=== PATIENT | female | born 1955 | race Caucasian/White ===

== ENCOUNTER → 2017-09-17 08:01 | Outpatient (CLI) | payer BC ==
[~2017-09-17] VITALS: Ht 170.2 cm; Wt 75.0 kg
--- NOTE | ~2017-09-17 | HEMODYNAMI ---
PATIENT:ANNIE NOEL MEDICAL RECORD: [id number] : 57 [id number] ADMISSION DATE: 09/17/17 Generatedon:09/17/201710:01 Patient name: ANNIE NOEL Patient #: [id number] SSN: [id number] : 1955 Date of study: 09/17/2017 Page: Of Hemodynamic Procedure Report Patient Data Patient Demographics Procedure consent was obtained First Name: ANNIE Gender: Female Last Name: : 1955 Patient #: [id number] Age: 62 year(s) Race: SSN: [id number] Additional ID: [id number] Contact details Address: [address] [place] [address] [address] State: [place] City: [facility] Zip code: [address] Past Medical History Allergies: No known allergies Admission Admission Data Admission Date: 09/17/2017 Admission Time: 8:01 Procedure Procedure Types Cath Procedure Diagnostic Procedure LHC LHC w/Coronaries FFR/IVUS Intra-Coronary IVUS Initial PCI Procedure Coronary Stent Coronary Stent Initial Procedure Description Procedure Date Procedure Date: 09/17/2017 Procedure Start Time: 9:38 Procedure End Time: 9:53 Procedure Staff Name Function Bryant Florez MD Performing Physician Kylie Angeles RT Monitor Jessica Brooks RT Scrub Shani Hurley RN Nurse Procedure Data Cath Procedure Fluoroscopy Diagnostic fluoroscopy Total fluoroscopy Time: 3.2 time: 3.2 min min Diagnostic fluoroscopy Total fluoroscopy dose: 851 dose: 851 mGy mGy Contrast Material Contrast Material Type Amount (ml) Isovue 300 65 Entry Location Entry Primary Successful Side Size Upsize Upsize Entry Closure Succes sful Closure Location (Fr) 1 (Fr) 2 (Fr) Remarks Device Remarks Femoral Right 5 Fr 6 Fr Exoseal artery Short Estimated blood loss: 5 ml Diagnostic catheters Device Type Used For End Catheter Placement MULTIPACK Pigtail 5 Fr LV Angiography catheter MULTIPACK JL 4.0 5Fr Left Coronary catheter Angiography MULTIPACK 3DRC 5Fr Right Coronary catheter Angiography Procedure Complications No complications Procedure Medications Medication Administration Route Dosage Oxygen NC 2 l/min Lidocaine 2% added to field 20 Heparin Flush Bag added to field 2 bags (1000units/500ml NS) 0.9% NaCl I.V. 100 ml/hr Versed I.V. 2 mg Fentanyl I.V. 100 mcg Versed I.V. 2 mg Fentanyl I.V. 100 mcg Heparin Bolus I.V. 4000 units Versed I.V. 2 mg Fentanyl I.V. 100 mcg Integrilin (Bolus I.V. 6.8 ml 2mg/ml) Versed I.V. 0.5 mg Fentanyl I.V. 25 mcg Plavix P.O. 600 mg Hemodynamics Rest Heart Rate: 66 (bpm) Pressure Samples Time Site Value (mmHg) Purpose Heart Use Rate(bpm) 9:39 LV 62/39,51 Snapshot 58 Snapshots Pre Cath Intra NCS Post Cath Vital Signs Time Heart Resp SPO2 etCO2 NIBP (mmHg) Rhythm Pain Sedation Rate (ipm) (%) (mmHg) Status Level (bpm) 9:22:31 66 22 100 20.1 127/85(104) NSR 0 (11) 10(A) , No pain 9:26:20 64 27 97 27.5 122/71(97) NSR 0 (11) 10(A) , No pain 9:30:07 63 32 99 27.6 116/74(95) NSR 0 (11) 10(A) , No pain 9:33:57 63 30 96 27.5 99/65(79) NSR 0 (11) 10(A) , No pain 9:37:42 64 18 98 17.8 102/67(82) NSR 0 (11) 10(A) , No pain 9:41:31 61 19 99 17.8 94/59(75) NSR 0 (11) 9(A) , No pain 9:45:37 67 19 97 14.8 127/74(90) NSR 0 (11) 9(A) , No pain 9:49:26 67 18 99 17.8 102/62(85) NSR 0 (11) 9(A) , No pain 9:53:12 65 18 99 16.3 106/69(89) NSR 0 (11) 9(A) , No pain 9:59:12 65 22 100 35 121/76(98) NSR 0 (11) 10(A) , No pain Medications Time Medication Route Dose Verified Delivered Reason Notes Effectiveness by by 9:28:07 Oxygen NC 2 Bryant Buffie used for l/min Gautam Hurley RN procedure 9:28:14 Lidocaine 2% added 20ml Bryant Bryant for local to vial Gautam Florez MD anesthetic field 9:28:19 Heparin Flush added 2 Bryant Bryant used for Bag to bags Gautam Florez MD procedure (1000units/500ml field NS) 9:28:26 0.9% NaCl I.V. 100 Bryant Buffie Per physician ml/hr Gautam Hurley RN 9:28:35 Versed I.V. 2 mg Bryant Buffie used for Gautam Hurley RN procedure 9:28:40 Fentanyl I.V. 100 Bryant Buffie for sedation mcg Gautam Hurley RN 9:34:59 Versed I.V. 2 mg Bryant Buffie used for Gautam Hurley RN procedure 9:35:04 Fentanyl I.V. 100 Bryant Buffie for sedation mcg Gautam Hurley RN 9:40:04 Versed I.V. 2 mg Bryant Buffie used for Gautam Hurley RN procedure 9:40:09 Fentanyl I.V. 100 Bryant Buffie for sedation mcg Gautam Hurley RN 9:44:00 Heparin Bolus I.V. 4000 Bryant Buffie for verifie d units Gautam Hurley RN anticoagulation with dr florez 9:47:42 Integrilin I.V. 6.8 Bryant Buffie for wasted (Bolus 2mg/ml) ml Gautam Hurley RN antiplatelet 3.2 ml therapy of vial 9:49:01 Versed I.V. 0.5 Bryant Buffie used for mg Gautam Hurley RN procedure 9:49:05 Fentanyl I.V. 25 Bryant Buffie for sedation mcg Gautam Hurley RN 9:56:51 Plavix P.O. 600 Bryant Buffie for mg Gautam Hurley RN antiplatelet therapy Procedure Log Time Note 9:07:27 Informed consent obtained and on chart 9:07:35 Diagnostic Cath Status : Elective 9:08:00 Jessica Brooks RT(R) sent for patient. Start room use. 9:08:01 Time tracking: Regular hours (M-F 7:00 - 5:00) 9:08:06 Plan of Care:Hemodynamics will remain stable., Cardiac rhythm will remain stable., Comfort level will be maintained., Respiratory function will remain adequate., Patient/ family verbilizes understanding of procedure., Procedure tolerated without complication., Recovers from procedure without complications.. 9:13:34 Patient received from Pre/Post Procedure Room to CCL 2 Alert and oriented. Tansferred to table in Supine position. 9:13:35 Warm blankets applied, and eufemia hugger turned on for patient comfort. 9:13:36 Correct patient and procedure confirmed by team. 9:13:37 ECG and BP/O2 sat monitors applied to patient. 9:21:49 Vital chart was started 9:21:55 Baseline sample Acquired. 9:22:02 Rhythm: sinus rhythm 9:22:04 Full Disclosure recording started 9:22:15 H&P Date Dictated: 09/02/2017 Within 30 days and on chart., H&P Addendum completed by physician on day of procedure. (MUST COMPLETE FOR ALL OUTPATIENTS). 9:22:23 Pre-procedure instructions explained to patient. 9:22:26 Family in waiting room. 9:22:28 Patient NPO since Midnight. 9:22:39 Patient allergic to No known allergies 9:22:43 Is the patient allergic to Iodine/contrast media? No. 9:22:45 Was the patient premedicated? Yes 9:22:47 Is patient on blood thinner?No 9:22:49 Patient diabetic? No. 9:22:53 Snore? Unknown 9:22:55 Sleep apnea? No 9:22:58 Deviated septum? No 9:22:59 Opens mouth fully? Yes 9:23:00 Sticks out tongue? Yes 9:23:08 Airway obstruction? Yes COPD 9:23:20 Dentures? Yes tight 9:23:25 Patient pain scale 0/10 ?. 9:23:31 IV patent on arrival in left forearm with 0.9% NaCl at [facility]. 9:23:36 Lab results completed and on chart. 9:23:40 Right groin area was prepped with chlora-prep and draped in sterile fashion 9:23:41 Alarms reviewed by R. N. 9::42 Sharps counted by scrub and verified by R.N. 9:23:43 Physician paged 9:: Physician arrived 9:: --------ALL STOP TIME OUT------ : Final Timeout: patient, procedure, and site verified with staff and physician. All members of the team are in agreement. 9:24: Right groin site verified by team. 9::29 Physical assessment completed. ASA score P 2 - A patient with mild systemic disease as per Bryant Florez MD. 9:24:34 Sedation plan: IV Moderate Sedation Medication:Versed, Fentanyl 9:24:37 Use device set Femoral Dx 9:24:38 ACIST Syringe (88651) opened to sterile field. 9:24:38 Bag Decanter (2002S) opened to sterile field. 9:24:39 Medline Cath Pack ([id number]) opened to sterile field. 9:24:39 DIAGNOSTIC WIRE .035 260cm J wire (404834) opened to sterile field. 9:24:40 ACIST Hand Control (17181) opened to sterile field. 9:24:41 ACIST Manifold (68901) opened to sterile field. 9:24:41 DIAGNOSTIC Multipack 5Fr catheter set (CU0228) opened to sterile field. 9:24:42 Tegaderm 4 x 4 (1626W) opened to sterile field. 9:24:43 SHEATH Prelude 5Fr 0.035 ([id number]-3O-49-035) opened to sterile field. 9:28:07 Oxygen 2 l/min NC was administered by Shani Hurley RN; used for procedure; 9:28:14 Lidocaine 2% 20ml vial added to field was administered by Bryant Florez MD; for local anesthetic; 9:28:19 Heparin Flush Bag (1000units/500ml NS) 2 bags added to field was administered by Bryant Florez MD; used for procedure; 9:28:26 0.9% NaCl 100 ml/hr I.V. was administered by Shani Hurley RN; Per physician; 9:28:35 Versed 2 mg I.V. was administered by Shani Hurley RN; used for procedure; 9:28:40 Fentanyl 100 mcg I.V. was administered by Shani Hurley RN; for sedation; 9:31:36 Zero performed for pressure channel P1 9:34:59 Versed 2 mg I.V. was administered by Shani Hurley RN; used for procedure; 9:35:04 Fentanyl 100 mcg I.V. was administered by Shani Hurley RN; for sedation; 9:38:23 Procedure started. 9:38:27 Local anesthetic to right femoral artery with Lidocaine 2% by Bryant Florez MD.INITIAL ACCESS ONLY 9:38:35 A 5 Fr sheath was inserted into the Right Femoral artery 9:39:04 A MULTIPACK Pigtail 5 Fr catheter was advanced over the wire and used for LV Angiography. 9:39:31 LV hemodynamics recorded. 9:39:31 LV gram done using GREGORIO 9:39:34 Injector settings: Ml/sec: 5, Volume: 15, 9:39:40 EF : 60 % 9:39:45 Catheter removed. 9:39:49 A MULTIPACK JL 4.0 5Fr catheter was advanced over the wire and used for Left Coronary Angiography. 9:40:04 Versed 2 mg I.V. was administered by Shani Hurley RN; used for procedure; 9:40:09 Fentanyl 100 mcg I.V. was administered by Shani Hurley RN; for sedation; 9:40:29 LCA angiography performed. 9:40:31 Injector settings: Ml/sec: 3, Volume: 6, 9:41:42 Catheter removed. 9:41:46 A MULTIPACK 3DRC 5Fr catheter was advanced over the wire and used for Right Coronary Angiography. 9:42:04 RCA angiography performed. 9:42:07 Injector settings: Ml/sec: 3, Volume: 6, 9:43:00 SHEATH 6Fr Prelude ([id number]) opened to sterile field. 9:43:01 INFLATOR Merit BasixCompak (SO8766) opened to sterile field. 9:43:02 [place] Stebbins Eagleye IVUS Catheter (36696V) opened to sterile field. 9:43:13 GUIDE 6FR EBU 3.5 catheter ([id number]) opened to sterile field. 9:43:24 Catheter removed. 9:43:25 Proceeding to intervention. 9:43:31 Sheath upsized to a 6 Fr Short. 9:43:37 6 Fr ebu 3.5 guide catheter was inserted over the wire 9:43:56 choice pt wire advanced. 9:43:58 Wire advanced across lesion. 9:44:00 Heparin Bolus 4000 units I.V. was administered by Shani Hurley RN; for anticoagulation; verified with dr florez 9:45:16 CHOICE PT Extra Support J 300cm guide wire ([id number]) opened to sterile field. 9:45:53 IVUS catheter advanced over wire. 9:47:38 IVUS pass to Circ lesion performed. 9:47:40 IVUS catheter removed over wire. 9:47:42 Integrilin (Bolus 2mg/ml) 6.8 ml I.V. was administered by Shani Hurley RN; for antiplatelet therapy; wasted 3.2 ml of vial 9:49:01 Versed 0.5 mg I.V. was administered by Shani Hurley RN; used for procedure; 9:49:05 Fentanyl 25 mcg I.V. was administered by Shani Hurley RN; for sedation; 9:49:46 Place stent Inflation Number: 1 A BLANCA OTW 3.0 x 18 stent ([id number]) was prepped and advanced across the Mid CX. The stent was deployed at 13 DARYA for 0:10 (min:sec). 9:50:21 Stent catheter was removed intact over wire. 9:50:21 Wire removed. 9:50:22 Guide catheter removed. 9:50:41 Sheath removed intact; hemostasis achieved with Exoseal to the Right Femoral artery. 9:50:50 Procedure ended.(Physican Out) 9:51:49 Fluoroscopy time 03.20 minutes. 9:51:55 Fluoroscopy dose: 851 mGy 9:51:55 Flurop Dose total: 851 9:51:59 Contrast amount:Isovue 300 65ml. 9:52:00 Sharps counted by scrub and verified by R.N. 9:52:02 Insertion/operative site no bleeding no hematoma. 9:52:05 Post-op/insertion site Right Femoral artery dressed using a 4 x 4 and Tegaderm. 9:52:08 Post right femoral artery:stable 9:52:10 Post Procedure Pulses reassessed and unchanged 9:52:13 Post procedure rhythm: unchanged. 9:52:16 Estimated blood loss: 5 ml 9:52:18 Post procedure instruction explained to patient.Patient verbalizes understanding. 9:52:18 Patient needs reinforcement of post procedure teaching. 9:53:06 Procedure type changed to Cath procedure, Diagnostic procedure, LHC, [facility] w/Coronaries, FFR/IVUS, Intra-Coronary IVUS Initial, PCI procedure, Coronary Stent, Coronary Stent Initial 9:53:06 Procedure and supply charges have been captured, reviewed, submitted and are correct. 9:53:10 Procedure Complication : No complications 9:53:14 Vital chart was stopped 9:53:15 See physician's report for complete and final results. 9:53:18 Report given to Pre/Post Procedure Room. 9:53:20 Patient transfered to Pre/Post Procedure Room with Stretcher. 9:53:22 Procedure ended. 9:53:22 Full Disclosure recording stopped 9:53:28 ACC-PCI Only Patient was given prescriptions, or instructed by Bryant Florez MD to start/continue the following medications upon discharge: Plavix 9:53:29 End room use (Document Last) 9:56:51 Plavix 600 mg P.O. was administered by Shani Hurley RN; for antiplatelet therapy; Intervention Summary Intervention Notes Time ActionType Lesion and Equipment Action# Pressure Duration Attributes Used 9:49:46 Place stent Mid CX BLANCA OTW 3.0 1 13 00:10 x 18 stent ([id number]) Device Usage Item Name Manufacture Quantity Catalog Number Hospital Part Current Minimal Lot# / Charge Number Stock Stock Serial# Code ACIST Syringe Acist 1 83900 602921 407521 371326 20 (82695) Medical Systems Inc Bag Decanter Microtek 1 2001S 356496 71933 800597 5 () Medical Inc. Medline Cath Cardinal 1 [id number] 513096 67295 977459 5 Pack Health ([id number]) DIAGNOSTIC WIRE [place] 1 216280 353242 805027 840301 30 .035 260cm J wire (721230) ACIST Hand Acist 1 47743 409693 447678 173780 5 Control (77852) Medical Systems Inc ACIST Manifold Acist 1 90898 602066 755018 579414 5 (97441) Medical Systems Inc DIAGNOSTIC Cardinal 1 [id number] 844939 28441 705505 30 Multipack 5Fr Health catheter set (OU2618) Tegaderm 4 x 4 3M 1 1626W 146606 244407 718412 5 (1626W) SHEATH Prelude Merit 1 VCG-0Y-93-035 444259 825003 406148 5 5Fr 0.035 Medical (LHG-9J-75-035) MULTIPACK Cardinal 1 048209 5 Pigtail 5 Fr Health catheter MULTIPACK JL Cardinal 1 798006 5 4.0 5Fr Health catheter MULTIPACK 3DRC Cardinal 1 424914 5 5Fr catheter Health SHEATH 6Fr Merit 1 [id number] 985618 202473 171687 5 Prelude Medical ([id number]) INFLATOR Merit Merit 1 GN2933 266096 639197 070542 15 BasixSolvate Medical (NG5818) [place] 1 36354S 554959 358874 498915 8 Stebbins Eagleye IVUS Catheter (06558Y) GUIDE 6FR EBU Medtronic 1 [id number] 878752 47459 352518 3 3.5 catheter ([id number]) CHOICE PT Extra [place] 1 [id number] 806145 030973 246706 5 Support J 300cm Scientific guide wire ([id number]) BLANCA OTW 3.0 x Medtronic 1 [id number] 816141 6793445 194248 5 [id number] 18 stent ([id number]) Signature Audit Marcus [place] Stage Time Signature Unsigned Intra-Procedure 09/17/2017 Jessica Brooks 10:01:46 AM RT(R) Signatures Monitor : Kylie Angeles Signature : RT Date : Time : [facility] [address] [place] [address]
--- NOTE | ~2017-09-17 | OP ---
PATIENT NAME: ANNIE NOEL MEDICAL RECORD: [id number] :57 LOCATION:D.CAT ADMISSION DATE: SURGEON: RHONA MALDONADO MD DATE OF OPERATION: 09/17/2017 PROCEDURES: 1. PTCA stent of left circumflex. 2. Intravascular ultrasound. 3. Left heart catheterization. 4. Selective coronary angiography. 5. Left ventriculogram. INDICATION: Angina and coronary artery disease. PROCEDURE IN DETAIL: After informed consent was obtained and after a detailed description of the risks, benefits as well as alternative therapies, the patient elected to proceed with angiogram and angioplasty. The right femoral area was prepped and draped in normal sterile fashion. Right femoral artery was cannulated via modified Seldinger technique with placement of 6-Slovenian sheath. All catheters exchanged through this sheath. FINDINGS: The left ventriculogram was performed in standard 30-degree GREGORIO view, reveals good cardiac wall motion throughout all segments. Overall ejection fraction estimated 60%. SELECTIVE CORONARY ANGIOGRAPHY: 1. Left main is with no significant angiographic disease. 2. Left anterior descending has previously placed stent. This is widely patent with no significant restenosis. No disease elsewise at the LAD or its branches. 3. The left circumflex had 90% stenosis in the mid vessel confirmed by intravascular ultrasound. 4. The right coronary has previously placed stent, is greater than 70% in-stent restenosis. PTCA STENT OF THE LEFT CIRCUMFLEX: The stent used was a 3.0 x 18 mm Kapil. Result with 0% residual stenosis. OVERALL IMPRESSION: Successful percutaneous transluminal coronary angioplasty stent of the left circumflex going from 90% initial stenosis to 0% residual. PLAN: PTCA stent of the RCA in the near future. TRANSINT:[id number] Voice Confirmation ID: [id number] DOCUMENT ID: [id number] RHONA MALDONADO MD at 1713 CC: [id number] DICTATION DATE: 09/17/17 0958 NEUROLOGY PHYSICIAN: 09/17/17 1041 [facility] CLI 09/17/[address] [address]
[~2017-09-17 08:01] MED LIST: ASPIRIN81 MG PO; METOPROLOL TAR100 M1 PO; PLAVIX75 MG PO; PRAVACHOL20 MG PO
[2017-09-17 08:06] VITALS: BP 129/83; Ht 170.2 cm; Wt 75.0 kg
[2017-09-17 08:12] LABS: BASOPHILS 0.6 % (0-2); HEMATOCRIT 43.7 % (36.0-48.0); HEMOGLOBIN 14.6 g/dL (12-16); IMMATURE GRANULOCYTES 0.3 % (0-5); LYMPHOCYTES 36.6 % (15-50); MCH 32.6 pg (26.0-34.0); MCHC 33.4 g/dL (31.0-37.0); MCV 97.5 fL (80.0-100.0); MEAN PLATELET VOLUME 10.1 fL (7.4-10.4); MONOCYTES 6.7 % (2-11); NEUTROPHILS 52.8 % (40-80); RBC 4.48 10x6/uL (4.00-5.40); RDW 13.5 % (11.5-14.5); WBC 6.4 10x3/uL (4.8-10.8)
[2017-09-17 08:24] LABS: PLATELET COUNT 206 10x3/uL (130-400)
[2017-09-17 08:39] LABS: ANION GAP 17.2 mmol/L (8-16); CALCIUM 9.6 mg/dL (8.5-10.1); CARBON DIOXIDE 22.1 mmol/L (21.0-32.0); POTASSIUM - SERUM 4.3 mmol/L (3.5-5.1)
== END | disposition home or self-care (01) ==
LOC: D.CATH 08:01
PROVIDERS: Internal Medicine Interventional Cardiology
DX: I25.119 Atherosclerotic heart disease of native coronary artery with unspecified angina pectoris (principal); Z01.812 Encounter for preprocedural laboratory examination

== ENCOUNTER 2017-09-24 07:34 | Outpatient (CLI) | payer BC ==
[~2017-09-24] VITALS: Ht 170.2 cm; Wt 75.0 kg
--- NOTE | ~2017-09-24 | OP ---
PATIENT NAME: ANNIE NOEL MEDICAL RECORD: [id number] :57 LOCATION:D.CAT ADMISSION DATE: SURGEON: RHONA MALDONADO MD DATE OF OPERATION: 09/24/2017 PROCEDURES: 1. PTCA and stent of RCA. 2. Selective coronary angiography. INDICATION: Angina and coronary artery disease. PROCEDURE IN DETAIL: After informed consent was obtained and after a detailed explanation of the risks, benefits as well as alternative therapies, the patient elected to proceed with angiogram and angioplasty. The left femoral area was prepped and draped in normal sterile fashion. Left femoral artery was cannulated via modified Seldinger technique with placement of 6-Romanian sheath. All catheters exchanged through this sheath. FINDINGS: The right coronary has 70% to 75% in-stent restenosis in the mid vessel. This was addressed with a 3.5 x 22 mm Kapil. The result was 0% residual stenosis. OVERALL IMPRESSION: Successful PTCA and stent of the RCA going from 75% initial stenosis to 0% residual. TRANSINT:[id number] Voice Confirmation ID: [id number] DOCUMENT ID: [id number] RHONA MALDONADO MD at 1658 CC: [id number] DICTATION DATE: 09/24/17 1102 PANTRY ATTENDANT: 09/24/17 1121 [facility] CLI 09/24/[address] [address]
--- NOTE | ~2017-09-24 | HEMODYNAMI ---
PATIENT:ANNIE NOEL MEDICAL RECORD: [id number] : 57 LOCATION:D.CAT ADMISSION DATE: 09/24/17 Generatedon:09/24/201711:05 Patient name: ANNIE NOEL Patient #: [id number] SSN: [id number] : 1955 Date of study: 09/24/2017 Page: Of Hemodynamic Procedure Report Patient Data Patient Demographics Procedure consent was obtained First Name: ANNIE Gender: Female Last Name: : 1955 Patient #: [id number] Age: 62 year(s) Race: SSN: [id number] Additional ID: [id number] Contact details Address: [address] [place] [address] [address] State: [place] City: [facility] Zip code: [address] Past Medical History Allergies: No known allergies Admission Admission Data Admission Date: 09/24/2017 Admission Time: 7:34 Lab Results Lab Result Date: 09/24/2017 Lab Result Time: 0:00 Biochemistry Name Units Result Min Max BUN mg/dl 24 --(----)-* 7 18 Creatinine mg/dl 0.8 --(-*--)-- 0.6 1.3 Procedure Procedure Types Cath Procedure PCI Procedure Coronary Stent Coronary Stent Initial Procedure Description Procedure Date Procedure Date: 09/24/2017 Procedure Start Time: 10:47 Procedure End Time: 11:04 Procedure Staff Name Function Bryant Florez MD Performing Physician Klaus Miller RN Nurse Gabo James RT Scrub Edy Marks RT Monitor Procedure Data Cath Procedure Fluoroscopy Diagnostic fluoroscopy Total fluoroscopy Time: 3.4 time: 3.4 min min Diagnostic fluoroscopy Total fluoroscopy dose: dose: 181.83 mGy 181.83 mGy Contrast Material Contrast Material Type Amount (ml) Isovue 300 32 Entry Location Entry Primary Successful Side Size Upsize Upsize Entry Closure Succes sful Closure Location (Fr) 1 (Fr) 2 (Fr) Remarks Device Remarks Femoral Left 6 Fr Exoseal artery Short Estimated blood loss: 10 ml Procedure Medications Medication Administration Route Dosage Oxygen etCO2 Nasal cannula 2 l/min Heparin Flush Bag added to field 2 bags (1000units/500ml NS) 0.9% NaCl I.V. 100 ml/hr Fentanyl I.V. 50 mcg Versed I.V. 1 mg Fentanyl I.V. 50 mcg Versed I.V. 1 mg Fentanyl I.V. 50 mcg Heparin Bolus I.V. 4000 units Fentanyl I.V. 50 mcg Hemodynamics Rest Heart Rate: 72 (bpm) Snapshots Pre Cath Intra NCS Post Cath Vital Signs Time Heart Resp SPO2 etCO2 NIBP (mmHg) Rhythm Pain Sedation Rate (ipm) (%) (mmHg) Status Level (bpm) 10:27:07 67 18 95 0 162/107(139) NSR 0 (11) 10(A) , No pain 10:31:27 68 17 97 33 156/99(147) NSR 0 (11) 10(A) , No pain 10:35:48 63 17 96 35.9 138/88(114) NSR 0 (11) 10(A) , No pain 10:40:03 67 16 96 30 129/87(104) NSR 0 (11) 10(A) , No pain 10:44:16 68 16 96 37.5 129/89(113) NSR 0 (11) 10(A) , No pain 10:48:31 66 16 97 40.4 118/76(101) NSR 0 (11) 9(A) , No pain 10:52:41 68 17 96 38.9 119/79(109) NSR 0 (11) 9(A) , No pain 10:56:53 68 16 97 40.4 120/76(106) NSR 0 (11) 9(A) , No pain 11:00:45 68 16 97 38.2 132/87(99) NSR 0 (11) 9(A) , No pain Medications Time Medication Route Dose Verified Delivered Reason Notes Effectiveness by by 10:28:47 Oxygen etCO2 2 Bryantladi Bachy Per physician Nasal l/min Gautam Miller RN cannula 10:28:56 Heparin Flush added 2 Bryant Enrique used for Bag to bags Gautam Miller control systems developer (1000units/500ml field NS) 10:29:05 0.9% NaCl I.V. 100 Bryant Klaus Per physician ml/hr Gautam Miller RN 10:46:10 Fentanyl I.V. 50 Bryant Enrique for sedation mcg Gautam Miller RN 10:46:16 Versed I.V. 1 mg Bryant Bachy for sedation Gautam Miller RN 10:48:03 Fentanyl I.V. 50 Bryant Enrique for sedation mcg Gautam Miller RN 10:48:08 Versed I.V. 1 mg Bryant Enrique for sedation Gautam Miller RN 10:50:29 Fentanyl I.V. 50 Bryant Enrique for sedation mcg Gautam Miller RN 10:50:46 Heparin Bolus I.V. 4000 Bryant Klaus for units Gautam Miller RN anticoagulation 10:53:18 Fentanyl I.V. 50 Bryant Enrique for sedation mcg Gautam Miller RN Procedure Log Time Note 10:00:08 Gabo James RT(R) sent for patient. Start room use. 10:09:10 Time tracking: Regular hours (M-F 7:00 - 5:00) 10:09:14 Plan of Care:Hemodynamics will remain stable., Cardiac rhythm will remain stable., Comfort level will be maintained., Respiratory function will remain adequate., Patient/ family verbilizes understanding of procedure., Procedure tolerated without complication., Recovers from procedure without complications.. 10:19:08 Patient received from Pre/Post Procedure Room to CCL 3 Alert and oriented. Tansferred to table in Supine position. 10:19:09 Warm blankets applied, and eufemia hugger turned on for patient comfort. 10:19:10 Correct patient and procedure confirmed by team. 10:19:12 Signed procedure consent form obtained from patient. 10:19:13 ECG and BP/O2 sat monitors applied to patient. 10:25:50 Vital chart was started 10:28:47 Oxygen 2 l/min etCO2 Nasal cannula was administered by Klaus Miller RN; Per physician; 10:28:56 Heparin Flush Bag (1000units/500ml NS) 2 bags added to field was administered by Klaus Miller RN; used for procedure; 10:29:05 0.9% NaCl 100 ml/hr I.V. was administered by Klaus Miller RN; Per physician; 10:29:11 Baseline sample Acquired. 10:29:17 Rhythm: sinus rhythm 10:29:19 Full Disclosure recording started 10:31:30 H&P Date Dictated: 09/24/2017 New H&P dictated by physician.. 10:31:42 Pre-procedure instructions explained to patient. 10:31:43 Pre-op teaching completed and patient verbalized understanding. 10:31:51 Family unavailable. 10:32:19 Patient NPO since Midnight. 10:32:34 Patient allergic to No known allergies 10:33:51 Is the patient allergic to Iodine/contrast media? No. 10:33:53 Is patient on blood thinner?Yes 10:33:57 ACC The patient was administered the following blood thiners within the last 24 hours: ACCPlavix 10:34:21 Patient diabetic? No. 10:34:32 Patient not . Patient is over age 55. 10:34:34 ----Pre-sedation anethsthesia assessment.---- 10:34:40 Previous problem with sedation/anesthesia? No ? 10:34:42 Snore? Yes 10:34:44 Sleep apnea? No 10:34:45 Deviated septum? No 10:34:48 Opens mouth fully? Yes 10:34:49 Sticks out tongue? Yes 10:34:52 Airway obstruction? No ? 10:35:06 Dentures? Yes IN TIGHT 10:36:14 Pre procedure: left posterior tibial pulse 1+ Palpable, but thready & weak; easily obliterated 10:36:19 Patient pain scale 0/10 ?. 10:37:08 IV patent on arrival in left forearm with 0.9% NaCl at [facility]. 10:38:58 Lab Result : BUN 24 mg/dl 10:38:58 Lab Result : Creatinine 0.8 mg/dl 10:39:14 Lab results completed and on chart. 10:39:19 Left groin area was prepped with chlora-prep and draped in sterile fashion 10:39:21 Alarms reviewed by R. N. 10:39:21 Sharps counted by scrub and verified by R.N. 10:39:44 Left groin site verified by team. 10:41:59 Use device set Acist 10:42:01 ACIST Syringe (31293) opened to sterile field. 10:42:02 ACIST Hand Control (08743) opened to sterile field. 10:42:03 ACIST Manifold (65059) opened to sterile field. 10:42:17 Use device set CATH PACK 10:42:21 DIAGNOSTIC WIRE .035 260cm J wire (321008) opened to sterile field. 10:42:22 Bag Decanter (2001S) opened to sterile field. 10:42:24 Medline Cath Pack ([id number]) opened to sterile field. 10:42:32 Zero performed for pressure channel P1 10:43:26 SHEATH 6Fr Prelude ([id number]) opened to sterile field. 10:43:27 CHOICE PT Extra Support 182cm wire ([id number]) opened to sterile field. 10:43:28 INFLATOR Merit BasixCompak (JF1557) opened to sterile field. 10:45:28 Physician arrived 10:45:28 --------ALL STOP TIME OUT------ 10:45:29 Final Timeout: patient, procedure, and site verified with staff and physician. All members of the team are in agreement. 10:45:33 Left groin site verified by team. 10:45:36 Physical assessment completed. ASA score P 2 - A patient with mild systemic disease as per Bryant Florez MD. 10:45:40 Sedation plan: IV Moderate Sedation Medication:Versed, Fentanyl 10:46:10 Fentanyl 50 mcg I.V. was administered by Klaus Miller RN; for sedation; 10:46:16 Versed 1 mg I.V. was administered by Klaus Miller RN; for sedation; 10:47:03 Procedure started. 10:47:13 Local anesthetic to left femerol artery with Lidocaine 2% by Bryant Florez MD.INITIAL ACCESS ONLY 10:47:27 GUIDE 6FR AR 1.0 catheter ([id number]) opened to sterile field. 10:47:44 A 6 Fr Short sheath was inserted into the Left Femoral artery 10:48:03 Fentanyl 50 mcg I.V. was administered by Klaus Miller RN; for sedation; 10:48:08 Versed 1 mg I.V. was administered by Klaus Miller RN; for sedation; 10:48:19 6 Fr AR 1 guide catheter was inserted over the wire 10:49:05 CHOICE wire advanced. 10:49:20 Wire advanced across lesion. 10:50:29 Fentanyl 50 mcg I.V. was administered by Klaus Miller RN; for sedation; 10:50:46 Heparin Bolus 4000 units I.V. was administered by Klaus Miller RN; for anticoagulation; 10:51:44 The BLANCA RX 3.5 x 26 stent ([id number]) was advanced then removed because of failure to cross lesion 10:53:18 Fentanyl 50 mcg I.V. was administered by Klaus Miller RN; for sedation; 10:54:06 STENT WOULD NOT COME BACK INTO THE GUIDE. ALL REMOVED INTACT THROUGH THE SHEATH. 10:55:29 6 Fr AR 1 guide catheter was inserted over the wire 10:55:48 CHOICE wire advanced. 10:56:00 Wire advanced across lesion. 10:56:42 Place stent Inflation Number: 1 A BLANCA RX 3.5 x 22 stent ([id number]) was prepped and advanced across the Mid RCA. The stent was deployed at 17 DARYA for 0:10 (min:sec). 10:59:36 EXOSEAL 6Fr (EX600) opened to sterile field. 10:59:40 Stent catheter was removed intact over wire. 10:59:42 Wire removed. 10:59:42 Guide catheter removed. 11:00:05 Tegaderm 4 x 4 (1626W) opened to sterile field. 11:00:21 Sheath removed intact; hemostasis achieved with Exoseal to the Left Femoral artery. 11:00:25 Procedure ended.(Physican Out) 11:01:11 Fluoroscopy time 03.40 minutes. 11:01:19 Flurop Dose total: 181.83 11:01:19 Fluoroscopy dose: 181.83 mGy 11:01:24 Contrast amount:Isovue 300 32ml. 11:01:26 Sharps counted by scrub and verified by R.N. 11:03:51 Insertion/operative site no bleeding no hematoma. 11:03:56 Post-op/insertion site Left Femoral artery dressed using a 4 x 4 and Tegaderm. 11:04:03 Post left femerol artery:stable 11:04:07 Post Procedure Pulses reassessed and unchanged 11:04:13 Post-procedure physical assessment completed. ASA score P 2 - A patient with mild systemic disease as per Bryant Florez MD. 11:04:18 Post procedure rhythm: unchanged., sinus rhythm 11:04:21 Estimated blood loss: 10 ml 11:04:24 Post procedure instruction explained to patient.Patient verbalizes understanding. 11:04:25 Patient needs reinforcement of post procedure teaching. 11:04:27 Procedure and supply charges have been captured, reviewed, submitted and are correct. 11:04:28 Vital chart was stopped 11:04:28 See physician's report for complete and final results. 11:04:31 Report given to Pre/Post Procedure Room. 11:04:36 Patient transfered to Pre/Post Procedure Room with Stretcher. 11:04:39 Procedure ended. 11:04:39 Full Disclosure recording stopped 11:04:42 End room use (Document Last) Intervention Summary Intervention Notes Time ActionType Lesion and Equipment Used Action# Pressure Duration Attributes 10:51:44 Discard BLANCA RX 3.5 x Stent 26 stent ([id number]) 10:56:42 Place stent Mid RCA BLANCA RX 3.5 x 1 17 00:10 22 stent ([id number]) Device Usage Item Name Manufacture Quantity Catalog Number Hospital Part Current M inimal Lot# / Charge Number Stock Stock Serial# Code ACIST Syringe Acist 1 06884 228013 936006 953752 2 0 (49980) Medical Systems Inc ACIST Hand Acist 1 42371 611173 054614 518530 5 Control Medical (87017) Systems Inc ACIST Manifold Acist 1 78480 563261 300811 131059 5 (67587) Medical Systems Inc DIAGNOSTIC [place] 1 905434 764951 991352 561023 3 0 WIRE .035 260cm J wire (959799) Bag Decanter Microtek 1 2001S 445366 82652 240981 5 (2001S) Medical Inc. Medline Cath Cardinal 1 [id number] 141878 44123 766613 5 [facility] ([id number]) SHEATH 6Fr Merit 1 [id number] 463711 520646 819132 5 Prelude Medical ([id number]) CHOICE PT [place] 1 [id number] 424071 870532 844242 5 Extra Support Scientific 182cm wire ([id number]) INFLATOR Merit Merit 1 OG7151 283189 251809 442121 1 5 Aviary (LF3620) GUIDE 6FR AR Medtronic 1 [id number] 650148 14901 906443 1 1.0 catheter (MS0TM14) BLANCA RX 3.5 x Medtronic 1 [id number] 784578 8008681 850542 5 [id number] 26 stent ([id number]) BLANCA RX 3.5 x Medtronic 1 [id number] 073457 1548361 810082 5 [id number] 22 stent ([id number]) EXOSEAL 6Fr Cardinal 1 EX600 593684 040006 440101 1 0 (EX600) Health Tegaderm 4 x 4 3M 1 1626W 069135 289612 402972 5 (1626W) Signature Audit [place] Time Signature Unsigned Intra-Procedure 09/24/2017 Edy Marks 11:05:06 AM RT(R) (CV) Signatures Monitor : Edy Marks RT Signature : Date : Time : [place] [id number] [facility] [place] [address]
--- NOTE | ~2017-09-24 | HP ---
PATIENT: ANNIE BARBER MEDICAL RECORD: [id number] ACCOUNT: [id number] LOCATION:[place] : 57 ADMISSION DATE: 09/24/17 HISTORY AND PHYSICAL EXAMINATION ADMITTING DIAGNOSES: 1. Angina. 2. Coronary artery disease. 3. Recent percutaneous transluminal coronary angioplasty stent of the left circumflex with concomitant disease of right coronary artery. 4. Hypertension. 5. Hyperlipidemia. HISTORY OF PRESENT ILLNESS: Mrs. Barber presents with unstable anginal symptomatology, found to have 2-vessel coronary artery disease, underwent successful PTCA stent of the circumflex. He is now brought back for PTCA stent of the RCA in a staged fashion. REVIEW OF SYSTEMS: The patient reports easy bruising but reports no swollen glands. The patient reports no fever, no night sweats, no significant weight gain, no significant weight loss. No significant exercise tolerance. The patient reports no dry eyes, no irritation, no vision change. Patient reports no difficulty hearing and no ear pain. Patient reports no frequent nose bleeds or nose and sinus problems. Patient reports on arm pain on exertion. No shortness of breath while lying down. No history of heart murmur. Patient reports no cough, no wheezing or coughing up blood. Patient reports no abdominal pain, no vomiting. Normal appetite. No diarrhea and not vomiting blood. No nausea and no constipation. Patient reports no incontinence. No difficulty urinating. No hematuria. No increased frequency. Patient reports no muscle aches. No weakness, no arthralgias, no back pain. No swelling of the extremities. Patient reports no abnormal mole, no jaundice, no rashes. Reports no loss of consciousness. No weakness and no numbness. No seizures, dizziness, or headaches. The patient reports no depression, no sleep disturbance, feeling safe in a relationship and no alcohol abuse. Patient reports on fatigue. Reports no runny nose or sinus pressure. No itching, no hives, and no frequent sneezing. PHYSICAL EXAMINATION: GENERAL APPEARANCE: Well-nourished, well-developed, appears stated age. Level of distress, comfortable. PSYCHIATRIC: Mental status, alert, normal affect. Orientation, oriented to time, place and person. EYES: Lids and conjunctiva, noninjected. No discharge, no pallor. ENT: Lips, teeth, gums, normal dentition. Oropharynx, no cyanosis, no pallor. NECK: Carotid arteries, bilateral normal upstroke, no bruits, no thrills. JUGULAR VEINS: No jugular venous pressure or distention. CERVICAL LYMPH NODES: Nontender, nonenlarged. THYROID: Not enlarged. Nontender. No nodules. LUNGS: Respiratory effort, unlabored. CHEST: Normal curvature. No thoracic deformity. No chest wall tenderness. Percussion, resonant. Auscultation, clear. No wheezes, no rales, no rhonchi. CARDIOVASCULAR: Precordial exam, nondisplaced. No heaves or pericardial thrills. Rate and rhythm, regular. Heart sounds, normal S1, normal S2. No S3, no gallop, no rub. Systolic murmur, not heard. Diastolic murmur, not heard. EXTREMITIES: No cyanosis, no edema. Peripheral pulses, full and equal in all HISTORY AND PHYSICAL [id number] ANNIE BARBER extremities, except as noted. No bruits appreciated. ABDOMEN: Soft, nondistended. Normal aorta. No bruit. Nontender. No masses. Liver, nontender, no hepatomegaly. Spleen, nontender, no splenomegaly. MUSCULOSKELETAL: No joint tenderness. No joint swelling. No erythema. NEUROLOGICAL: Normal gait, normal strength, normal tone. SKIN: Warm and dry. OVERALL IMPRESSION: Anginal symptomatology with significant disease of the right coronary artery. We will proceed with percutaneous transluminal coronary angioplasty stent of the right coronary artery. TRANSINT:[id number] Voice Confirmation ID: [id number] DOCUMENT ID: [id number] RHONA MALDONADO MD at 2002 CC: [id number] DICTATION DATE: 09/24/17 1100 LABEL TACKER: 09/24/17 1139 [facility] CLI 09/24/17 [place] [id number] [place] [id number]
[2017-09-24 08:05] VITALS: BP 160/95; Ht 170.2 cm; Wt 75.0 kg
[2017-09-24 08:14] LABS: BASOPHILS 0.4 % (0-2); HEMATOCRIT 39.3 % (36.0-48.0); IMMATURE GRANULOCYTES 0.1 % (0-5); MCH 32.4 pg (26.0-34.0); MCHC 33.1 g/dL (31.0-37.0); MEAN PLATELET VOLUME 10.7 fL (7.4-10.4); MONOCYTES 5.1 % (2-11); NEUTROPHILS 64.4 % (40-80); PLATELET COUNT 214 10x3/uL (130-400); RBC 4.01 10x6/uL (4.00-5.40); RDW 13.4 % (11.5-14.5); WBC 7.3 10x3/uL (4.8-10.8)
[2017-09-24 08:28] LABS: CALC OSMOLALITY 285 mosm/kg (275-300); CALCIUM 8.8 mg/dL (8.5-10.1); CARBON DIOXIDE 22.9 mmol/L (21.0-32.0); CHLORIDE - SERUM 108 mmol/L (98-107); CREATININE - SERUM 0.8 mg/dL (0.6-1.3); GLUCOSE 120 mg/dL (74-106); POTASSIUM - SERUM 4.2 mmol/L (3.5-5.1); SODIUM 141 mmol/L (136-145); UREA NITROGEN 24 mg/dL (7-18); eGFR NON AFRICAN AMERICAN 77 mL/min (90-120)
== END 2017-09-24 14:51 | disposition home or self-care (01) ==
LOC: D.CATH 07:34
PROVIDERS: Internal Medicine Interventional Cardiology
DX: I25.119 Atherosclerotic heart disease of native coronary artery with unspecified angina pectoris (principal); I10 Essential (primary) hypertension; E78.5 Hyperlipidemia, unspecified; Z01.812 Encounter for preprocedural laboratory examination

== ENCOUNTER 2018-11-07 13:51 | Observation (INO) | payer BC ==
[~2018-11-07] VITALS: Ht 170.2 cm; Wt 81.8 kg
[2018-11-07] VITALS: BP 140/87
--- NOTE | ~2018-11-07 | OP ---
PATIENT NAME: ANNIE NOEL MEDICAL RECORD: [id number] :57 LOCATION:D.M2 D.2119 ADMISSION DATE:11/07/18 SURGEON: HOLGER SALAS MD DATE OF OPERATION: 11/08/2018 PROCEDURE: Left heart catheterization, selective coronary angiography, right femoral artery approach. CATHETERS: A 5-Romanian sheath, 5/4 left and right Moncho, 5/4 pig. The procedure was well tolerated. The patient returned to [facility]. Sheath removed. ExoSeal device placed. FINDINGS: Left ventriculography in 30-degree GREGORIO view: Normal wall motion and normal systolic function. CORONARY ANATOMY: LEFT MAIN: Left main is free of disease. LAD: An area of previous stenting is widely patent. No other significant restenosis, no progression of [place]osh[place] disease. CIRCUMFLEX: Free of disease. RIGHT CORONARY ARTERY: Area of previous stenting is widely patent. No evidence of restenosis, no progression of eastern shosh[place] disease. IMPRESSION: Patent stents. No progression of [place]osh[place] disease. LV function remains normal. TRANSINT:[id number] Voice Confirmation ID: [id number] DOCUMENT ID: [id number] HOLGER SALAS MD CC: [id number] DICTATION DATE: 11/08/18912 CLINICAL NURSE: 11/08/18 1140 ADM IN [facility] [address] [place] [address]
--- NOTE | ~2018-11-07 | HEMODYNAMI ---
PATIENT:ANNIE NOEL MEDICAL RECORD: [id number] : 57 [id number] ADMISSION DATE: 11/07/18 Generatedon:11/08/20189:15 Patient name: ANNIE NOEL Patient #: [id number] SSN: [id number] : 1955 Date of study: 11/08/2018 Page: Of Hemodynamic Procedure Report Patient Data Patient Demographics Procedure consent was obtained First Name: ANNIE Gender: Female Last Name: : 1955 Patient #: [id number] Age: 63 year(s) Race: SSN: [id number] Additional ID: [id number] Contact details Address: [address] [place] [address] [address] State: [place] City: [facility] Zip code: [address] Past Medical History Allergies: No known allergies Admission Admission Data Admission Date: 11/07/2018 Admission Time: 16:51 Arrival Date: 11/08/2018 Arrival Time: 0:00 Room #: D.2119 Insurance Payor: Private health insurance [facility] #: [id number] Height (in.): 66.93 BSA: 1.93 (m2) Height (cm.): 170 BMI: 28.03 (kg/m2) Weight (lbs.): 178.58 Weight (kg.): 81 Lab Results Lab Result Date: 11/08/2018 Lab Result Time: 0:00 Biochemistry Name Units Result Min Max BUN mg/dl 22 --(----)-* 7 18 Creatinine mg/dl 0.9 --(-*--)-- 0.6 1.3 eGFR ml/min 67.25118 *-(----)-- 90 120 NONAFRICAN CBC Name Units Result Min Max Hematocrit % 37.9 *-(----)-- 42 54 Hemoglobin g/dl 12.8 -*(----)-- 13.5 17.5 Procedure Procedure Types Cath Procedure Diagnostic Procedure [facility] w/Coronaries Procedure Description Procedure Date Procedure Date: 11/08/2018 Procedure Start Time: 9:00 Procedure End Time: 9:10 Procedure Staff Name Function Rocael Bruno MD Performing Physician Shani Hurley RN Nurse Edy Marks RT Scrub Mercedez Osborn RT Scrub Radha Encinas RT Monitor Procedure Data Cath Procedure Fluoroscopy Diagnostic fluoroscopy Total fluoroscopy Time: 1.2 time: 1.2 min min Diagnostic fluoroscopy Total fluoroscopy dose: 414 dose: 414 mGy mGy Contrast Material Contrast Material Type Amount (ml) Isovue 300 69 Entry Location Entry Primary Successful Side Size Upsize Upsize Entry Closure Succes sful Closure Location (Fr) 1 (Fr) 2 (Fr) Remarks Device Remarks Femoral Right 5 Fr Exoseal artery Estimated blood loss: 5 ml Diagnostic catheters Device Type Used For End Catheter Placement MULTIPACK JL 4.0 5Fr Procedure catheter MULTIPACK 3DRC 5Fr Procedure catheter MULTIPACK Pigtail 5 Fr Procedure catheter Procedure Complications No complications Procedure Medications Medication Administration Route Dosage Oxygen etCO2 Nasal cannula 2 l/min Lidocaine 2% added to field 20 Heparin Flush Bag added to field 2 bags (1000units/500ml NS) 0.9% NaCl I.V. 100 ml/hr Versed I.V. 2 mg Fentanyl I.V. 100 mcg Versed I.V. 2 mg Fentanyl I.V. 100 mcg Versed I.V. 2 mg Hemodynamics Rest BSA: 1.93 (m2) HGB: 12.8 (g/dl) O2 Consumption: Estimated: 184.45 (ml/min) O2 Co nsumption indexed: Estimated:95.57 (ml/min/m) Heart Rate: 74 (bpm) Pressure Samples Time Site Value (mmHg) Purpose Heart Use Rate(bpm) 9:06 LV 119/15,17 Snapshot 66 9:06 AO 131/101(84) Pullback 64 9:06 LV 99/18,20 Pullback 64 Gradients Valve Time Site 1 Site 2 Mean SEP/DFP Peak To Heart Use (mmHg) (sec/min) Peak Rate (mmHg) (bpm) Aortic 9:06 LV AO 0 8 0 64 99/18,20 131/101(84) Calculations Valve P-P Mean Valve Index Valve Source Name Gradient Area Flow (cm2) Aortic 0 0 0 0 Snapshots Pre Cath Intra NCS Post Cath Vital Signs Time Heart Resp SPO2 etCO2 NIBP (mmHg) Rhythm Pain Sedation Rate (ipm) (%) (mmHg) Status Level (bpm) 8:49:46 72 23 97 29.8 149/91(137) NSR 0 (11) 10(A) , No pain 8:54:02 68 25 96 25.4 163/83(133) NSR 0 (11) 10(A) , No pain 8:58:16 67 25 96 1.4 142/81(108) NSR 0 (11) 10(A) , No pain 9:02:30 61 15 95 24.6 124/81(108) NSR 0 (11) 10(A) , No pain 9:06:36 60 18 97 13.4 112/85(104) NSR 0 (11) 9(A) , No pain 9:10:42 59 20 94 20.1 124/76(112) NSR 0 (11) 10(A) , No pain Medications Time Medication Route Dose Verified Delivered Reason Notes Effe ctiveness by by 8:51:16 Oxygen etCO2 2 Rocael Buffie used for Nasal l/min St Ashok Hurley RN procedure cannula 8:51:23 Lidocaine 2% added 20ml Rocael Rocael for local to vial [facility] anesthetic field MD AWRE 8:51:29 Heparin Flush added 2 Rocael Rocael used for Bag to bags [facility] procedure (1000units/500ml field MD WARE NS) 8:51:40 0.9% NaCl I.V. 100 Rocael Cheyanneie Per ml/hr St Ashok Hurley RN physician 8:57:46 Versed I.V. 2 mg Rocael Buffie for [facility] Ashok Hurley RN sedation 8:57:52 Fentanyl I.V. 100 [address] for mcg [address] Ashok Hurley RN sedation 9:02:34 Versed I.V. 2 mg Rocael Buffie for [facility] Ashok Hurley RN sedation 9:02:38 Fentanyl I.V. [address] for mcg [address] Ashok Hurley RN sedation 9:07:44 Versed I.V. 2 mg Roc[address]ie for [address] Ashok Hurley RN sedation Procedure Log Time Note 8:26:02 Informed consent obtained and on chart 8:27:15 Procedure Status Urgent Heart Cath (IP). 8:27:16 Time tracking: Regular hours (M-F 7:00 - 5:00) 8:27:20 Plan of Care:Hemodynamics will remain stable., Cardiac rhythm will remain stable., Comfort level will be maintained., Respiratory function will remain adequate., Patient/ family verbilizes understanding of procedure., Procedure tolerated without complication., Recovers from procedure without complications.. 8:27:34 Patient allergic to No known allergies 8:28:49 Lab Result : BUN 22 mg/dl 8::49 Lab Result : eGFR NONAFRICAN 67.63583 ml/min 8::49 Lab Result : Creatinine 0.9 mg/dl 8::49 Lab Result : Hemoglobin 12.8 g/dl 8::49 Lab Result : Hematocrit 37.9 % 8:30:07 Shani Hurley RN sent for patient. Start room use. 8:39:03 Patient received from Med II to CCL 1 Alert and oriented. Tansferred to table in Supine position. 8:39:04 Warm blankets applied, and eufemia hugger turned on for patient comfort. 8:39:05 Correct patient and procedure confirmed by team. 8:39:05 ECG and BP/O2 sat monitors applied to patient. 8:39:06 Pre-procedure instructions explained to patient. 8:39:06 Pre-op teaching completed and patient verbalized understanding. 8:39:13 H&P Date Dictated: 11/08/2018 Within 30 days and on chart.. 8:41:42 Family in patients room. 8:41:43 Patient NPO since Midnight. 8:41:47 Is the patient allergic to Iodine/contrast media? No. 8:42:02 Is patient on blood thinner?Yes 8:42:04 ACC The patient was administered the following blood thiners within the last 24 hours: ACCAspirin, ACCPlavix 8:42:10 Patient diabetic? No. 8:42:12 Previous problem with sedation/anesthesia? No ? 8:42:14 Snore? Yes 8:42:15 Sleep apnea? No 8:42:16 Deviated septum? No 8:42:16 Opens mouth fully? Yes 8:42:17 Sticks out tongue? Yes 8:42:20 Airway obstruction? Yes COPD 8:42:23 Dentures? No ? 8:42:52 Pre procedure: right dorsailis pedis pulse 2+ Normal; easily identifiable; not easily obliterated 8:42:54 Patient pain scale 0/10 ?. 8:43:04 IV patent on arrival in right antecubital with 0.9% NaCl at [facility]. 8:43:06 Lab results completed and on chart. 8:43:09 Right groin area was prepped with chlora-prep and draped in sterile fashion 8:43:10 Alarms reviewed by R. N. 8:43:10 Sharps counted by scrub and verified by R.N. 8:43:16 Use device set Femoral Dx 8:43:17 ACIST Syringe (77040) opened to sterile field. 8:43:17 Bag Decanter (2002S) opened to sterile field. 8:43:18 Medline Cath Pack ([id number]) opened to sterile field. 8:43:19 ACIST Hand Control (08617) opened to sterile field. 8:43:20 ACIST Manifold (27980) opened to sterile field. 8:43:21 Tegaderm 4 x 4 (1626W) opened to sterile field. 8:43:21 MICROPUNCTURE 4FR Cook ([id number]) opened to sterile field. 8:43:22 EMERALD Guide Wire (099-684) opened to sterile field. 8:43:23 SHEATH 5FR Greenwood (KRQ605) opened to sterile field. 8:43:24 DIAGNOSTIC Multipack 5Fr catheter set ([id number]) opened to sterile field. 8:43:46 Patient Weight : 178.58 lbs 8:43:49 Patient Height : 66.93 inches 8:43:55 Insurance Payor : Private health insurance 8:44:12 Arrival Date: 11/08/2018 12:00:00 AM 8:48:37 Vital chart was started 8:48:40 Baseline sample Acquired. 8:48:44 Rhythm: sinus rhythm 8:48:45 Full Disclosure recording started 8:51:16 Oxygen 2 l/min etCO2 Nasal cannula was administered by Shani Hurley RN; used for procedure; 8:51:23 Lidocaine 2% 20ml vial added to field was administered by Rocael Bruno MD; for local anesthetic; 8:51:29 Heparin Flush Bag (1000units/500ml NS) 2 bags added to field was administered by Rocael Bruno MD; used for procedure; 8:51:40 0.9% NaCl 100 ml/hr I.V. was administered by Shani Hurley RN; Per physician; 8:57:26 --------ALL STOP TIME OUT------ 8:57:27 Final Timeout: patient, procedure, and site verified with staff and physician. All members of the team are in agreement. 8:57:28 Right groin site verified by team. 8:57:30 Fire Safety Assessment: A--An alcohol-based skin anteseptic being used preoperatively., C--Open oxygen or nitrous oxide is being used., D--An ESU, laser, or fiber-optic light is being used. 8:57:33 Physical assessment completed. ASA score P 2 - A patient with mild systemic disease as per Rocael Bruno MD. 8:57:36 2) 60-89 Mildly reduced kidney function, and other findings (as for stage 1) point to kidney disease. 8:57:39 Maximum allowable contrast dose (3.7 X eGFR X 0.75)133 ml. 8:57:42 Sedation plan: IV Moderate Sedation Medication:Versed, Fentanyl 8:57:46 Versed 2 mg I.V. was administered by Shani Hurley RN; for sedation; 8:57:52 Fentanyl 100 mcg I.V. was administered by Shani Hurley RN; for sedation; 8:58:48 Zero performed for pressure channel P1 9:00:00 Procedure started. 9:00:59 Local anesthetic to right femoral artery with Lidocaine 2% by Rocael Bruno MD.INITIAL ACCESS ONLY 9:01:12 A 5 Fr sheath was inserted into the Right Femoral artery 9:01:47 A MULTIPACK JL 4.0 5Fr catheter was advanced over the wire and used for Procedure. 9:02:34 Versed 2 mg I.V. was administered by Shani Hurley RN; for sedation; 9:02:38 Fentanyl 100 mcg I.V. was administered by Shani Hurley RN; for sedation; 9:03:34 LCA angiography performed. 9:03:38 Catheter removed. 9:04:34 A MULTIPACK 3DRC 5Fr catheter was advanced over the wire and used for Procedure. 9:05:04 RCA angiography performed. 9:05:06 Catheter removed. 9:05:40 A MULTIPACK Pigtail 5 Fr catheter was advanced over the wire and used for Procedure. 9:06:08 LV gram done using GREGORIO 9:06:32 Injector settings: Ml/sec: 10, Volume: 20, 9:06:41 LV hemodynamics recorded. 9:06:45 EF : 55 % 9:06:49 Catheter removed. 9:06:58 EXOSEAL 5Fr (EX500) opened to sterile field. 9:07:17 Sheath removed intact; hemostasis achieved with Exoseal to the Right Femoral artery. 9:07:34 Procedure ended.(Physican Out) 9:07:44 Versed 2 mg I.V. was administered by Shani Hurley RN; for sedation; 9:08:48 Fluoroscopy time 01.20 minutes. 9:08:51 Flurop Dose total: 414 9:08:51 Fluoroscopy dose: 414 mGy 9::58 Dose Area Product 64126 mGy/cm. 9:09:01 Contrast amount:Isovue 300 69ml. 9:09:04 Maximum allowable dose exceeded? No. 9:09:05 Sharps counted by scrub and verified by R.N. 9:09:08 Post-op/insertion site Right Femoral artery dressed using a 4 x 4 and Tegaderm. 9:09:10 Post-procedure physical assessment completed. ASA score P 2 - A patient with mild systemic disease as per Rocael Bruno MD. 9:09:13 Post procedure rhythm: sinus rhythm 9:09:15 Estimated blood loss: 5 ml 9:09:17 Post procedure instruction explained to patient.Patient verbalizes understanding. 9:09:17 Patient needs reinforcement of post procedure teaching. 9:09:56 Procedure and supply charges have been captured, reviewed, submitted and are correct. 9::58 Procedure Complication : No complications 9:10:04 Vital chart was stopped 9:10:05 See physician's report for complete and final results. 9:10:07 Report given to Med II. 9:10:10 Patient transfered to Med II with Bed. 9:10:12 Procedure ended. 9:10:12 Full Disclosure recording stopped 9:10:17 End room use (Document Last) Device Usage Item Name Manufacture Quantity Catalog Hospital Part Current Minimal Lot# / Number Charge Number Stock Stock Serial# Code ACIST Syringe Acist 1 85414 [id number] 337871 110009 20 (93917) Medical Systems Inc Bag Decanter Microtek 1 2001S 307602 77610 994115 5 (2001S) Medical Inc. Medline Cath Medline 1 [id number] 765512 18834 787134 5 Pack ([id number]) ACIST Hand Acist 1 84659 769034 276143 464031 5 Control Medical (60639) Systems Inc ACIST Acist 1 46858 566993 698420 364645 5 Manifold Medical (39423) Systems Inc Tegaderm 4 x 3M 1 1626W 842173 620265 604082 5 4 (1626W) MICROPUNCTURE Cook Medical 1 T60680 853991 476412 442615 5 4FR Cook (T61604) EMERALD Guide Cardinal 1 502-455 791811 646334 785501 5 Wire Health (502455) SHEATH 5FR Terumo 1 UYI385 520880 454839 374367 5 Greenwood (DHH045) DIAGNOSTIC Cardinal 1 OJ5702 251692 15550 177985 30 Multipack 5Fr Health catheter set (HA8868) MULTIPACK JL Cardinal 1 972101 5 4.0 5Fr Health catheter MULTIPACK Cardinal 1 850307 5 3DRC 5Fr Health catheter MULTIPACK Cardinal 1 281729 5 Pigtail 5 Fr Health catheter EXOSEAL 5Fr Cardinal 1 EX500 562731 381491 473273 10 (EX500) Health Signature Audit Temple Stage Time Signature Unsigned Intra-Procedure 11/08/2018 Radha Encinas 9:15:05 AM RT(R) Signatures Performing Physician : Signature : Rocael Bruno MD Date : Time : Nurse : Shani Hurley RN Signature : Date : Time : Monitor : Radha Encinas Signature : RT Date : Time : [address] [place] [address]
[2018-11-07 14:33] LABS: BASOPHILS 0.3 % (0-2); EOSINOPHILS 1.2 % (0-7); HEMATOCRIT 42.1 % (36.0-48.0); HEMOGLOBIN 14.9 g/dL (12-16); IMMATURE GRANULOCYTES 0.3 % (0-5); MCH 33.5 pg (26.0-34.0); MCHC 35.4 g/dL (31.0-37.0); MCV 94.6 fL (80.0-100.0); MEAN PLATELET VOLUME 10.7 fL (7.4-10.4); MONOCYTES 6.2 % (2-11); PLATELET COUNT 205 10x3/uL (130-400); RBC 4.45 10x6/uL (4.00-5.40); RDW 13.5 % (11.5-14.5); WBC 7.6 10x3/uL (4.8-10.8)
[2018-11-07 14:40] LABS: APTT 26.4 SECONDS (22.8-39.4); INR 0.92 (0.85-1.17); PROTIME 11.9 SECONDS (11.6-15.0)
[2018-11-07 14:55] LABS: ALBUMIN 3.8 g/dL (3.4-5.0); ALKALINE PHOSPHATASE 116 U/L (46-116); ALT (SGPT) 36 U/L (10-68); BILIRUBIN - TOTAL 0.25 mg/dL (0.2-1.3); CALC OSMOLALITY 274 mosm/kg (275-300); CALCIUM 9.9 mg/dL (8.5-10.1); CARBON DIOXIDE 21.9 mmol/L (21.0-32.0); CHLORIDE - SERUM 104 mmol/L (98-107); CREATININE - SERUM 1.2 mg/dL (0.6-1.3); GLUCOSE 114 mg/dL (74-106); POTASSIUM - SERUM 3.8 mmol/L (3.5-5.1); PROTEIN - SERUM 7.5 g/dL (6.4-8.2); SODIUM 136 mmol/L (136-145); UREA NITROGEN 19 mg/dL (7-18); eGFR NON AFRICAN AMERICAN 48 mL/min (90-120)
[2018-11-07 15:05] LABS: CKMB 2.3 U/L (0.0-3.6); CREATINE KINASE 44 UL (21-215)
[2018-11-07 15:09] LABS: TROPONIN-I < 0.017 ng/mL (0.000-0.060)
[2018-11-07] MEDS ORDERED: ALBUTEROL SULF8.5 GM INH (17:37)
[2018-11-07] MEDS ORDERED: BACLOFEN10 MG PO (17:38)
--- NOTE | 2018-11-07 17:51 | NUR ---
PATIENT ARRIVED FROM ER. PATIENT IS ALERT AND ORIENTED, RESTING COMFORTABLY IN BED. RESPIRATIONS ARE EVEN AND UNLABORED. NO S/S OF DISTRESS. NO C/O PAIN. CALL LIGHT WITHIN REACH.
--- NOTE | 2018-11-07 17:53 | NUR ---
MED RX COMPLETE. PATIENT STATES SHE DOES NOT TAKE LISINOPRIL, CARVEDILOL, AND LIPITOR. SHE STATED SHE PICKED THEM UP FROM PHARMACY BUT SHE NO LONGER TAKES THEM BECAUSE THEY WEREN'T DOING ANYTHING FOR HER.
--- NOTE | 2018-11-07 17:55 | NUR ---
PATIENT REQUESTING NICOTINE PATCH WILL CALL SLICE CUTTING MACHINE OPERATOR HELPER. PATIENT RESUSING SCD'S
--- NOTE | 2018-11-07 19:34 | NUR ---
NICOTINE PATCH 21 MG AND 0.5 MG ATIVAN ORDERED. KATHERINE PUGH REVIEWING OTHER MEDICATIONS.
[2018-11-07 20:53] LABS: CKMB 1.8 U/L (0.0-3.6); CREATINE KINASE 40 UL (21-215)
[2018-11-07 20:56] LABS: TROPONIN-I < 0.017 ng/mL (0.000-0.060)
[2018-11-08 01:12] VITALS: BP 138/83; Ht 170.2 cm; Wt 81.8 kg
[2018-11-08 04:00] VITALS: BP 132/76
[2018-11-08 06:36] LABS: BASOPHILS 0.3 % (0-2); EOSINOPHILS 1.6 % (0-7); HEMATOCRIT 37.9 % (36.0-48.0); HEMOGLOBIN 12.8 g/dL (12-16); IMMATURE GRANULOCYTES 0.2 % (0-5); LYMPHOCYTES 25.2 % (15-50); MCH 32.5 pg (26.0-34.0); MCHC 33.8 g/dL (31.0-37.0); MCV 96.2 fL (80.0-100.0); MONOCYTES 7.7 % (2-11); PLATELET COUNT 187 10x3/uL (130-400); RBC 3.94 10x6/uL (4.00-5.40); RDW 13.8 % (11.5-14.5); WBC 6.4 10x3/uL (4.8-10.8)
[2018-11-08 06:55] LABS: CALC OSMOLALITY 280 mosm/kg (275-300); CALCIUM 8.8 mg/dL (8.5-10.1); CARBON DIOXIDE 21.5 mmol/L (21.0-32.0); CHLORIDE - SERUM 107 mmol/L (98-107); CKMB 1.8 U/L (0.0-3.6); CREATINE KINASE 43 UL (21-215); CREATININE - SERUM 0.9 mg/dL (0.6-1.3); GLUCOSE 104 mg/dL (74-106); POTASSIUM - SERUM 3.9 mmol/L (3.5-5.1); SODIUM 139 mmol/L (136-145); THYROID STIMULATING HORMONE 5.48 uIU/mL (0.36-3.74); UREA NITROGEN 22 mg/dL (7-18); eGFR NON AFRICAN AMERICAN 67 mL/min (90-120)
[2018-11-08 06:58] LABS: TROPONIN-I < 0.017 ng/mL (0.000-0.060)
[2018-11-08 07:57] VITALS: BP 159/98
[2018-11-08 09:13] LABS: MAGNESIUM - SERUM 2.2 mg/dL (1.8-2.4)
--- NOTE | 2018-11-08 09:29 | CN ---
PATIENT NAME:ANNIE NOEL MEDICAL RECORD: [id number] : 57 LOCATION:D.[facility] D.2119 ADMIT DATE: 11/07/18 ACCOUNT: [id number] CONSULTING PHYSICIAN: HOLGER SALAS MD REFERRING PHYSICIAN: LAI MANNING MD DATE OF CONSULTATION: 11/08/2018 HISTORY OF PRESENT ILLNESS: A 63-year-old female with a history of coronary artery disease, status post intervention, has a history of hypertension, hyperlipidemia, obstructive pulmonary disease, admitted with class III angina progressively for the past month, had rest symptomatology yesterday, relieved with nitroglycerin, beta blockade. We are asked to see her concerning her cardiovascular status. PAST MEDICAL HISTORY: Includes: 1. History of obstructive pulmonary disease. 2. Hypertension. 3. Hyperlipidemia. 4. Coronary artery disease. ALLERGIES: None known. MEDICATIONS: Typically include albuterol 2 puffs q.4 hours, metoprolol 100 b.i.d., aspirin 81 every day. SOCIAL HISTORY: Smokes about a pack a day. Social drinker. 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 No set exercise program. REVIEW OF SYSTEMS: The patient reports easy bruising but reports no swollen glands. The patient reports no fever, no night sweats, no significant weight gain, no significant weight loss. No significant exercise tolerance. The patient reports no dry eyes, no irritation, no vision change. Patient reports no difficulty hearing and no ear pain. Patient reports no frequent nose bleeds or nose and sinus problems. Patient reports on arm pain on exertion. No shortness of breath while lying down. No history of heart murmur. Patient reports no cough, no wheezing or coughing up blood. Patient reports no abdominal pain, no vomiting. Normal appetite. No diarrhea and not vomiting blood. No nausea and no constipation. Patient reports no incontinence. No difficulty urinating. No hematuria. No increased frequency. Patient reports no muscle aches. No weakness, no arthralgias, no back pain. No swelling of the extremities. Patient reports no abnormal mole, no jaundice, no rashes. Reports no loss of consciousness. No weakness and no numbness. No seizures, dizziness, or headaches. The patient reports no depression, no sleep disturbance, feeling safe in a relationship and no alcohol abuse. Patient reports on fatigue. Reports no runny nose or sinus pressure. No itching, no hives, and no frequent sneezing. PHYSICAL EXAMINATION: GENERAL: Pleasant female in no acute distress, appears stated age. VITAL SIGNS: Blood pressure 132/76, pulse 76 and regular. HEENT: Normocephalic, atraumatic. NECK: No bruits are noted. HEART: Regular. A II/ systolic ejection murmur. LUNGS: Prolonged respiratory phase, few wheezes. ABDOMEN: Soft, nontender. CONSULT REPORT [id number] ANNIE NOEL EXTREMITIES: Pulses 2+. No edema. NEUROLOGIC: Grossly intact. DIAGNOSTIC DATA: ECG shows nonspecific ST-T changes anteriorly. IMPRESSION: Acute coronary syndrome with rest angina, class IV. PLAN: For angiography, intervention based on above. TRANSINT:[id number] Voice Confirmation ID: [id number] DOCUMENT ID: [id number] HOLGER SALAS MD at 0929 CC: [id number] DICTATION DATE: 11/08/18824 OUTREACH CONSULTANT: 11/08/1818 ADM IN [place] [id number] [place] [id number]
--- NOTE | 2018-11-08 09:33 | NUR ---
ARRIVE BACK TO ROOM FROM GREETING CARD WRITER VIA BED. RT GROIN DRESSING CLEAN DRY INTACT. FREE FROM HEMATOMA. FREE FROM BLEEDING. PULSE PALPABLE BILATERALLY. BP-148/110, HR-61, O2-98% RA. ENCOURAGE TO REMAIN FLAT FOR NEXT 2 HOURS DUE TO INCREASE RISK FOR BLEEDING. CONTINUE PLAN OF CARE AND SAFETY PRECAUTIONS.
--- NOTE | 2018-11-08 13:45 | MORECARE ---
CASE MANAGEMENT DISCHARGE SUMMARY PATIENT: ANNIE NOEL UNIT: [id number] ADM DATE: 11/07/18 AGE: 63 : 57 SEX: F ROOM/BED: D.3009 AUTHOR: KALIN DODD PHYSICIAN: REFERRING PHYSICIAN: LAI MANNING MD DATE OF SERVICE: 11/08/18 Discharge Plan Patient Name: ANNIE [facility]EL [facility] [facility] 1955 Planned Disposition: Home Anticipated Discharge Date: 11/08/18 Discharge Date: Expected LOS: 1 Initial Reviewer: [email or web address] Initial Review Date: 11/08/2018 Generated: 11/08/18 2:44 pm DCPIA - Discharge Planning Initial Assessment Updated by [email or web address]: Aris Allen on 11/08/18 1:43 pm * Is the patient Alert and Oriented? Yes * How many steps to enter\exit or inside your home? NONE * PCP NONE * Pharmacy [facility] * Preadmission Environment Home with Family * ADLs Independent * Equipment Cane * Other Equipment NO MEDICAL EQUIPMENT PROVIDER PREFERENCE * List name and contact numbers for known caregivers / representatives who currently or will assist patient after discharge: PARIS CARCAMO, FRIEND, * Verbal permission to speak to the caregivers and representatives has been obtained from the patient. N/A * Community resources currently utilized None * Please name any agencies selected above. NONE * Additional services required to return to the preadmission environment? No * Can the patient safely return to the preadmission environment? Yes * Has this patient been hospitalized within the prior 30 days at any hospital? No Patient Name: ANNIE NOEL Page [phone] at 1345 All edits/amendments must be made on the electronic document DICTATION DATE: 11/08/18 1344 BUSINESS PROCESS MANAGER: GABBY 11/08/18 1344 RPT#: [id number] DC DATE: STATUS: ADM IN [facility] [address] [place] [address] END OF REPORT
[2018-11-08] MEDS ORDERED: PROTONIX40 MG PO (13:50)
--- NOTE | 2018-11-08 13:53 | MORECARE ---
CASE MANAGEMENT DISCHARGE SUMMARY PATIENT: ANNIE NOEL UNIT: [id number] ADM DATE: 11/07/18 AGE: 63 : 57 SEX: F ROOM/BED: D.1027 AUTHOR: YOUSIF,DOC PHYSICIAN: REFERRING PHYSICIAN: LAI MANNING MD DATE OF SERVICE: 11/08/18 Discharge Plan Patient Name: ANNIE NOEL Facility[facility] : 1955 Planned Disposition: Home Anticipated Discharge Date: 11/08/18 Discharge Date: Expected LOS: 1 Initial Reviewer: [email or web address] Initial Review Date: 11/08/2018 Generated: 11/08/18 2:53 pm Comments DCP- Discharge Planning Updated by [email or web address]: Aris Allen on 11/08/18 12:[address] Patient Name: ANNIE NOEL Admission Status: ER Accout number: [id number] Admission Date: 11-07-2018 : 1955 Admission Diagnosis: Attending: LAI MANNING Current LOS: 1 Anticipated DC Date: 11-08-2018 Planned Disposition: Home Primary Insurance: [employer] OUT OF STATE Discharge Planning Comments: CM RECEIVED ORDER FOR PT WANTING PCP CLOSE TO HER HOME AND A NOTE FROM PATIENT STATING SHE WANTS A NEBULIZER. CM MET WITH PT IN ROOM TO DISCUSS DISCHARGE PLANNING AND NEEDS. PT REPORTS LIVING AT HOME INDEPENDENTLY WITH HER ADULT TWIN BROTHER. PT HAS A CANE WITH NO MEDICAL EQUIPMENT PROVIDER PREFERENCE. PT HAS NO OUTSIDE SERVICES ASSISTING IN THE HOME. CM DISCUSSED AVAILABILITY OF HOME HEALTH, REHAB SERVICES AND MEDICAL EQUIPMENT. PT REPORTS HAVING INHALERS AT HOME THAT SHE USES AND IS NOT SURE IF THE DOCTOR IS GOING TO PUT HER ON NEBULIZER MEDICATIONS. CM INFORMED PT THAT IF THE DOCTOR DOES CHANGE HER FROM INHALERS TO NEBULIZER, CM WILL SPEAK TO PT AND MAKE ARRANGEMENTS FOR ANY NEW MEDICAL EQUIPMENT IF NEEDED. PT DENIES DISCHARGE NEEDS, REPORTS HER DAUGHTER WILL PICK HER UP FOR DISCHARGE HOME. CM DISCUSSED HOW PT CAN CONTACT HER INSURANCE COMPANY VIA INTERNET OR PHONE FOR LISTING OF IN NETWORK DOCTORS AND HOW TO CONTACT THEM TO SEE IF THEY HAVE OPENINGS. CM PROVIDED PT WITH INFORMATION FOR DR. FISHER AND [employer] TO ASSIST PT WITH HER SEARCH FOR A NEW PRIMARY CARE DOCTOR IN HER AREA. PT DENIES FURTHER NEEDS. PT PLANS TO DISCHARGE HOME WITH HER TWIN BROTHER, PT'S DAUGHTER WILL TRANSPORT PT HOME AT DISCHARGE. PT DENIES DISCHARGE NEEDS. CM TO FOLLOW AND ASSIST IF NEEDED. [employer] Portal Developer: Aris Allen DCPIA - Discharge Planning Initial Assessment Updated by [email or web address]: Aris Allen on 11/08/18 1:43 pm * Is the patient Alert and Oriented? Yes * How many steps to enter\exit or inside your home? NONE * PCP NONE * Pharmacy [facility] * Preadmission Environment Home with Family * ADLs Independent * Equipment Cane * Other Equipment NO MEDICAL EQUIPMENT PROVIDER PREFERENCE * List name and contact numbers for known caregivers / representatives who currently or will assist patient after discharge: PARIS CARCAMO, FRIEND, * Verbal permission to speak to the caregivers and representatives has been obtained from the patient. N/A * Community resources currently utilized None * Please name any agencies selected above. NONE * Additional services required to return to the preadmission environment? No * Can the patient safely return to the preadmission environment? Yes * Has this patient been hospitalized within the prior 30 days at any hospital? No Last DP export: 11/08/18 12:45 p Patient Name: ANNIE NOEL Page [phone] at 1353 All edits/amendments must be made on the electronic document DICTATION DATE: 11/08/18 135 CLINICAL BIOCHEMICAL GENETICIST: GABBY 11/08/18 1352 RPT#: [id number] DC DATE: STATUS: ADM IN [facility] [address] [place] [address] END OF REPORT
[2018-11-08] MEDS ORDERED: ALDACTONE25 MG PO (15:28)
--- NOTE | 2018-11-08 17:00 | NUR ---
ALERT AND ORIENTED X4. SITTING UP IN BED. FAMILY AT BEDSIDE. RT GROIN DRESSING CLEAN DRY INTACT. FREE FROM HEMATOMA. FREE FROM BLEEDING. DISCHARGE INSTRUCTIONS GIVEN VERBALLY AND WRITTEN. DISCHARGE PAPERS SIGNED ON CHART. DC RT FA IV TIP INTACT. ESCORT TO RIDE VIA WHEELCHAIR. REMAINS FREE FROM INJURY.
--- NOTE | 2018-11-09 07:23 | MORECARE ---
CASE MANAGEMENT DISCHARGE SUMMARY PATIENT: ANNIE NOEL UNIT: [id number] ADM DATE: 11/07/18 AGE: 63 : 57 SEX: F ROOM/BED: D.7359 AUTHOR: KALIN DODD PHYSICIAN: REFERRING PHYSICIAN: LAI MANNING MD DATE OF SERVICE: 11/09/18 Discharge Plan Patient Name: ANNIE NOEL Facility: [facility]:[place] : 1955 Planned Disposition: Home Anticipated Discharge Date: 11/08/18 Discharge Date: 11/08/2018 Expected LOS: 1 Initial Reviewer: [email or web address] Initial Review Date: 11/08/2018 Generated: 11/09/18 8:03 am Comments DCP- Discharge Planning Updated by [email or web address]: Aris Allen on 11/08/18 12:[address] Patient Name: ANNIE NOEL Admission Status: ER Accout number: [id number] Admission Date: 11-07-2018 : 1955 Admission Diagnosis: Attending: LAI MANNING Current LOS: 1 Anticipated DC Date: 11-08-2018 Planned Disposition: Home Primary Insurance: [employer] OUT OF STATE Discharge Planning Comments: CM RECEIVED ORDER FOR PT WANTING PCP CLOSE TO HER HOME AND A NOTE FROM PATIENT STATING SHE WANTS A NEBULIZER. CM MET WITH PT IN ROOM TO DISCUSS DISCHARGE PLANNING AND NEEDS. PT REPORTS LIVING AT HOME INDEPENDENTLY WITH HER ADULT TWIN BROTHER. PT HAS A CANE WITH NO MEDICAL EQUIPMENT PROVIDER PREFERENCE. PT HAS NO OUTSIDE SERVICES ASSISTING IN THE HOME. CM DISCUSSED AVAILABILITY OF HOME HEALTH, REHAB SERVICES AND MEDICAL EQUIPMENT. PT REPORTS HAVING INHALERS AT HOME THAT SHE USES AND IS NOT SURE IF THE DOCTOR IS GOING TO PUT HER ON NEBULIZER MEDICATIONS. CM INFORMED PT THAT IF THE DOCTOR DOES CHANGE HER FROM INHALERS TO NEBULIZER, CM WILL SPEAK TO PT AND MAKE ARRANGEMENTS FOR ANY NEW MEDICAL EQUIPMENT IF NEEDED. PT DENIES DISCHARGE NEEDS, REPORTS HER DAUGHTER WILL PICK HER UP FOR DISCHARGE HOME. CM DISCUSSED HOW PT CAN CONTACT HER INSURANCE COMPANY VIA INTERNET OR PHONE FOR LISTING OF IN NETWORK DOCTORS AND HOW TO CONTACT THEM TO SEE IF THEY HAVE OPENINGS. CM PROVIDED PT WITH INFORMATION FOR DR. FISHER AND [employer] TO ASSIST PT WITH HER SEARCH FOR A NEW PRIMARY CARE DOCTOR IN HER AREA. PT DENIES FURTHER NEEDS. PT PLANS TO DISCHARGE HOME WITH HER TWIN BROTHER, PT'S DAUGHTER WILL TRANSPORT PT HOME AT DISCHARGE. PT DENIES DISCHARGE NEEDS. CM TO FOLLOW AND ASSIST IF NEEDED. International Account Manager: Aris Allen DCPIA - Discharge Planning Initial Assessment Updated by [email or web address]: Aris Allen on 11/08/18 1:43 pm * Is the patient Alert and Oriented? Yes * How many steps to enter\exit or inside your home? NONE * PCP NONE * Pharmacy [facility] * Preadmission Environment Home with Family * ADLs Independent * Equipment Cane * Other Equipment NO MEDICAL EQUIPMENT PROVIDER PREFERENCE * List name and contact numbers for known caregivers / representatives who currently or will assist patient after discharge: PARIS CARCAMO, FRIEND, * Verbal permission to speak to the caregivers and representatives has been obtained from the patient. N/A * Community resources currently utilized None * Please name any agencies selected above. NONE * Additional services required to return to the preadmission environment? No * Can the patient safely return to the preadmission environment? Yes * Has this patient been hospitalized within the prior 30 days at any hospital? No Last DP export: 11/08/18 12:53 p Patient Name: ANNIE NOEL Page [id number] at [id number] All edits/amendments must be made on the electronic document DICTATION DATE: 11/09/18702 BULLET SWAGING MACHINE ADJUSTER: GABBY 11/09/18702 RPT#: [id number] DC DATE:11/08/18 STATUS: DIS IN [facility] [address] [place] [address] END OF REPORT
== END 2018-11-08 17:02 | disposition home or self-care (01) ==
LOC: D.ER 13:51 → D.M2 16:51 → OBSVTIME 16:51 → D.M2 16:51
PROVIDERS: Family Medicine; ADMIT Internal Medicine Nephrology; ATTEND Internal Medicine Nephrology
DX: I24.9 Acute ischemic heart disease, unspecified (principal); I10 Essential (primary) hypertension; E78.5 Hyperlipidemia, unspecified; J44.9 Chronic obstructive pulmonary disease, unspecified; I25.110 Atherosclerotic heart disease of native coronary artery with unstable angina pectoris; N17.9 Acute kidney failure, unspecified; F17.203 Nicotine dependence unspecified, with withdrawal; F41.8 Other specified anxiety disorders; G89.29 Other chronic pain